=== PATIENT | female | born 1985 | race American Indian/Alaskan Native ===

== ENCOUNTER 2016-12-17 13:54 | Inpatient (IN) | payer OTHER, MEDICAID ==
[2016-12-17] MEDS ORDERED: COLACE PO PRN (14:19)
[2016-12-17] MEDS ORDERED: TYLENOL PO PRN (14:19)
--- NOTE | 2016-12-17 14:26 | History and Physical Report ---
[id number] complaint: 31 yo at 28wk + 1day EGA admitted for severe Pre E and IUGR and absent/ reversed end diastolic flow on doppler at [facility] by Dr Holden. She called me with this information and wanted patient admitted for observation, monitoring and steroids with anticipation that she might have to be delivered fairly soon. Patient has chronic hypertension, currently on no meds. Recent 24 hour urine was 504 mg which makes her severe PreE, per Dr Holden. Fetus has IUGR with growth at 8%. Patient sent to hospital at 11AM and showed up at 10PM. We will do steroids and continuous monitoring, baseline labs, bedrest. If monitoring is acceptable, she should have repeat dopplers in 2-3 days. Will also repeat 24 hr urine. Patient has had 2 prior vaginal deliveries. Will do GBS also. Patient has known pituitary microadenoma with last prolactin at 131, recent 1 hr glucose was 136 and we have not had time to follow this up. 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 Weight (lb): 134 BMI: 22.7 BP: 154/ 98 mm Hg Ur. Protein: negative Ur. Glucose: negative Chief Complaint/Current Status: c/o missed period, slight cramping, unable to eat.....arturoackson 2nd BP: 128/84....edinson Menstrual History Regularity: irregular LMP: 06/03/2016 LMP reliability: definite LMP character: normal test type: urine test Date: 07/23/2016 BC at conception: none Planned ? yes EDC Calculations LMP: 03/10/2017 EDC Confirmation: 03/10/2017 Gestational Age: 7 1/7 weeks Past History : 4 Term Births: 2 Premature Births: 0 Living Children: 2 Para: 2 Mult. Births: 0 Prev : 0 Aborta: 1 Elect. Ab: 1 # 1 Delivery date: 01/01/2007 Weeks Gestation: 38 labor: no Delivery type: Hours of labor: 8 Anesthesia type: epidural Delivery location: [facility] Sex: Male weight: 5-? Name: Shon Comments: Elevated BP # 2 Delivery date: 12/20/2009 Weeks Gestation: 38 labor: no Delivery type: Hours of labor: 7 Anesthesia type: epidural Delivery location: [facility] Infant Sex: Male weight: 5-? 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 of genital herpes: no Partner hx. of genital herpes: no Genetic History Congenital Heart Defect: Mom: no Dad: no Chao Disease: Mom: no Dad: no Thalassemia Mom: no Dad: no Neural Tube Defect Mom: no Dad: no Down's Syndrome Mom: no Dad: no Ulices-Sachs Mom: no Dad: no Sickle Cell Disease/Trait Mom: no Dad: no Hemophilia Mom: no Dad: no Muscular Dystrophy Mom: no Dad: no Cystic Fibrosis Mom: no Dad: no [place] Chorea Mom: no Dad: no Mental Retardation Mom: no Dad: no Fragile X Mom: no Dad: no Other Genetic/Chromosomal Disorder Mom: no Dad: no Child w/other defect Mom: no Dad: no Active Medications (reviewed today): FORMULA 27-1 MG ORAL TABS ( VIT-FE FUMARATE-FA) 1 po q day as directed PROMETHAZINE HCL 12.5 MG TABS (PROMETHAZINE HCL) 1 po q6 prn nausea PNV () Current Allergies (reviewed today): No known allergies Laboratory Results Routine Urinalysis Leukocytes: negative Nitrite: negative Urobilinogen: negative Protein: negative Blood: negative Ketone: large (80) Bilirubin: negative Glucose: negative Urine HCG: positive Review of Systems General Complains of fatigue. Denies fever, chills, sweats, anorexia, weakness, malaise, weight loss and sleep disorder. Complains of nausea and vomiting. Denies headache, swelling of legs, abdominal pain, vaginal discharge, vaginal bleeding and contractions. Denies vaginal discharge, incontinence, dysuria, hematuria, urinary frequency, amenorrhea, menorrhagia, abnormal vaginal bleeding, pelvic pain, genital sores, decreased libido, painful periods, painful sex, urinary urgency, hot flashes, vaginal dryness, vaginal itching and vaginal odor. CV Denies chest pains, palpitations, syncope, dyspnea on exertion, orthopnea, PND and peripheral edema. Resp Denies cough, dyspnea at rest, excessive sputum, hemoptysis, wheezing and pleurisy. Breast Complains of breast pain. Denies left breast lump, right breast lump, nipple discharge, bloody discharge from nipple, abnormal mammogram and breast enlargement. Psych Denies depression, anxiety, irritability and mood swings. PHYSICAL EXAM HEENT: normocephalic, no lesions or deformities Neck/Thyroid: supple, thyroid normal Skin no significant abnormal lesions or rashes .Tatoo(s) are present Chest: respiratory effort normal, clear to auscultation Breasts: skin/areolae normal, no masses, no nipple discharge, no erythema/warmth /tenderness, and axillae normal. 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 Vulva/Vagina: No lesions, normal BUS, normal rugae Cervix: No lesions; no cervical motion tenderness Uterus: enlarged uterus 8 - 10 weeks size Adnexae: no masses or tenderness Rectovaginal: exam defered Flowsheet View for Follow-up Visit Estimated weeks of gestation: 7 12/07 Weight: 134 Blood pressure: 154 / 98 Urine protein: negative Urine glucose: negative Urine nitrite: negative Current OB Labs Pap Smear: normal (12/02/2014) Impression & Recommendations: Problem # 1: Hyperprolactinemia (ICD-253.1) (CFH31-C70.1) Assessment: New Orders: Ofc Vst New [id number] ([id number]) Medications and Allergies Allergies Allergy/AdvReac Type Severity Reaction Status Date / Time No Known Allergies Allergy Verified 12/18/16 00:56 Results Result Diagrams: 12/17/16 23:48 12/17/16 23:48 All other labs normal. Assessment and Plan - Patient Problems (1) Severe pre-eclampsia in third trimester Status: Acute Plan to address problem: see HPI (2) Intrauterine growth restriction (IUGR) affecting care of mother, third trimester, single gestation Status: Acute Plan to address problem: see HPI
[2016-12-17] MEDS ORDERED: CELESTONE SOLUSPAN IM SCH ×2 (15:00→22:00)
[2016-12-18] MEDS: LACTATED RINGERS 1,000 ML IV SCH ×2 (00:02→22:52)
[2016-12-18 00:06] LABS: Basophils % (Auto) 0.3 % (0.0-1.8); Eosinophils % (Auto) 1.6 % (0.0-4.3); Hematocrit 35.2 % (30.3-42.9); Hemoglobin 12.4 gm/dl (10.1-14.3); Mean Corpuscular HGB Conc 35 % (30-34); Mean Corpuscular Hemoglobin 32 pg (28-32); Mean Corpuscular Volume 91 fl (79-97); Platelet Count 230 K/mm3 (140-440); Red Blood Count 3.88 M/mm3 (3.65-5.03); Red Cell Distribution Width 13.6 % (13.2-15.2); White Blood Count 8.8 K/mm3 (4.5-11.0)
[2016-12-18 00:26] LABS: Alanine Aminotransferase 19 units/L (7-56); Albumin 3.3 g/dL (3.9-5); Albumin/Globulin Ratio 1.1 %; Alkaline Phosphatase 67 units/L (35-129); Anion Gap 19 mmol/L; BUN/Creatinine Ratio 13.33; Bilirubin,Total 0.5 mg/dL (0.1-1.2); Blood Urea Nitrogen 4 mg/dL (7-17); Calcium 8.5 mg/dL (8.4-10.2); Carbon Dioxide 20 mmol/L (22-30); Chloride 102.4 mmol/L (98-107); Glucose 67 mg/dL (65-100); Potassium 3.4 mmol/L (3.6-5.0); Sodium 138 mmol/L (137-145); Total Protein 6.4 g/dL (6.3-8.2)
[2016-12-18] MEDS: AMBIEN PO PRN (03:00)
[2016-12-18 03:45] LABS: Bacteria,Urine 2+ /HPF (Negative); Bilirubin,Urine NEG (Negative); Blood,Urine MOD (Negative); Ketones,Urine TR mg/dL (Negative); Leukocyte Esterase,Urine MOD (Negative); Mucus,Urine FEW /HPF; Nitrite,Urine NEG (Negative); Protein,Urine <15 mg/dL mg/dL (Negative); Urobilinogen,Urine < 2.0 mg/dL (<2.0)
--- NOTE | 2016-12-18 03:45 | Ultrasound Report ---
FINAL REPORT PROCEDURE: US OB BPP WO NON-STRESS TECHNIQUE: Real-time limited sonographic examination was performed for evaluation of size, position, heartbeat, fluid volume for each fetus with image documentation (1 or more fetuses). CPT 20428 HISTORY: presentation, weight, growth COMPARISON: No prior studies are available for comparison. FINDINGS: breathing movements: 2. movements: 2. posterior and tone: 2. Amniotic fluid volume: 2. heart rate 141 beats per minute. IMPRESSION: Biophysical profile is 8/8.
--- NOTE | 2016-12-18 03:49 | Ultrasound Report ---
FINAL REPORT PROCEDURE: US OB VELOCIMETRY UMBILCAL ART TECHNIQUE: Real-time limited sonographic examination was performed for evaluation of size, position, heartbeat, fluid volume for each fetus with image documentation (1 or more fetuses). CPT 39715 HISTORY: absent/reversed end diastolic flow on doppler COMPARISON: No prior studies are available for comparison. FINDINGS: Umbilical artery Doppler was performed demonstrating absent and reversed end-diastolic blood flow. The SD ratio and RI could not be calculated. Pulsatility index is 28.2. heart rate is 143 beats per minute. IMPRESSION: Umbilical artery Doppler was performed demonstrating absent and reversed end-diastolic blood flow. Pulsatility index is 28.2. heart rate is 143 beats per minute.
--- NOTE | 2016-12-18 03:52 | Ultrasound Report ---
FINAL REPORT PROCEDURE: US OB FOLLOW UP TECHNIQUE: Real-time sonography performed for focused follow-up or re-evaluation of each size/growth parameters and amniotic fluid or re-evaluation of suspected or confirmed abnormality on prior imaging. CPT 33414 HISTORY: growth/efw, placenta scan COMPARISON: No prior studies are available for comparison. FINDINGS: MATERNAL Uterus: Within normal limits . Cervix length: 3.4 cm. Internal Os: Closed . IUP: Single living intrauterine . Position: Cephalic. Placental position: Anterior, Without previa . Amniotic fluid volume: Normal . Heart rate and rhythm: 125 BPM, Regular . anatomic survey: Not performed. There is right hydronephrosis. MEASUREMENTS BPD: 6.5 centimeters corresponding to 26 weeks and 3 days. HC: 24.6 centimeters correspond to 26 weeks and 5 days. AC: 22.5 centimeters correspond to 26 weeks and 6 days. FL: 4.8 centimeters correspond to 26 weeks. Mean Gestational Age (composite criteria): 26 weeks and 4 days. Ratio biometry: Normal . Estimated Weight: 952 grams. Interval growth: No prior study. Estimated Due Date (earliest scan): 03/22/2017. IMPRESSION: 1. Single living intrauterine gestation at approximately 26 weeks and 4 days 2. EDC by US 03/22/2017 3. There is right hydronephrosis.
--- NOTE | 2016-12-18 07:38 | Progress Note ---
Assessment and Plan Patient resting, no complaints of MAGAÑA, visual changes or epigastric pain. Discussed importance of monitoring d/t concern over IUGR and reversed doppler flow. [facility]'s Dr. Alvares here to see patient. Continue current management at this time. Dr. Dempsey to be updated. - Patient Problems (1) Intrauterine growth restriction (IUGR) affecting care of mother, third trimester, single gestation Current Visit: No Status: Acute Plan to address problem: Continuous monitoring with u/s as recommended by [facility] Doppler flow studies reviewed by Dr. Alvares reviewed u/s - noted to be reversed. BMZ second dose @ 0100 12/19/16 (2) 28 weeks gestation of Current Visit: Yes Status: Acute (3) HTN (hypertension) Current Visit: Yes Status: Acute Plan to address problem: r/o pre-e verses chronic htn 24h urine in progress, UA upon arrival with trace protein. Subjective - Subjective Date of service: 12/18/16 Principal diagnosis: IUP @ 28+2, CHTN, IUGR, reveresed doppler studies Patient reports: movement normal, no new complaints, no loss of fluid, no vaginal bleeding, no contractions Objective - Vital Signs Vital Signs: Vital Signs - 12hr 12/17/16 12/17/16 12/17/16 23:27 23:36 23:41 Temperature Pulse Rate 76 76 83 Pulse Rate [ Left From Monitor] Respiratory Rate Blood Pressure 156/97 Blood Pressure [Right Arm] O2 Sat by Pulse 99 100 Oximetry 12/17/16 12/17/16 12/17/16 23:46 23:51 23:56 Temperature Pulse Rate 80 82 74 Pulse Rate [ Left From Monitor] Respiratory Rate Blood Pressure Blood Pressure [Right Arm] O2 Sat by Pulse 99 99 99 Oximetry 12/18/16 12/18/16 12/18/16 00:01 00:06 00:11 Temperature Pulse Rate 76 71 71 Pulse Rate [ Left From Monitor] Respiratory Rate Blood Pressure Blood Pressure [Right Arm] O2 Sat by Pulse 99 99 99 Oximetry 12/18/16 12/18/16 12/18/16 00:16 00:21 00:26 Temperature Pulse Rate 71 72 69 Pulse Rate [ Left From Monitor] Respiratory Rate Blood Pressure Blood Pressure [Right Arm] O2 Sat by Pulse 99 100 99 Oximetry 12/18/16 12/18/16 12/18/16 00:31 00:36 00:41 Temperature Pulse Rate 83 71 71 Pulse Rate [ Left From Monitor] Respiratory Rate Blood Pressure Blood Pressure [Right Arm] O2 Sat by Pulse 99 99 98 Oximetry 12/18/16 12/18/16 12/18/16 01:23 01:53 02:47 Temperature Pulse Rate 89 87 74 Pulse Rate [ Left From Monitor] Respiratory Rate Blood Pressure 141/93 180/117 182/117 Blood Pressure [Right Arm] O2 Sat by Pulse Oximetry 12/18/16 12/18/16 12/18/16 03:17 05:23 05:47 Temperature Pulse Rate 75 86 130 H Pulse Rate [ Left From Monitor] Respiratory Rate Blood Pressure 147/80 140/85 131/86 Blood Pressure [Right Arm] O2 Sat by Pulse Oximetry 12/18/16 12/18/16 12/18/16 06:17 06:48 07:17 Temperature Pulse Rate 94 H 146 H 88 Pulse Rate [ Left From Monitor] Respiratory Rate Blood Pressure 132/79 125/98 144/92 Blood Pressure [Right Arm] O2 Sat by Pulse Oximetry 12/18/16 12/18/16 12/18/16 07:21 07:26 07:27 Temperature 97.4 F L Pulse Rate 108 H 95 H Pulse Rate [ 103 H Left From Monitor] Respiratory 16 Rate Blood Pressure Blood Pressure 147/98 [Right Arm] O2 Sat by Pulse 98 98 98 Oximetry 12/18/16 12/18/16 12/18/16 07:28 07:29 07:31 Temperature Pulse Rate 98 H 97 H 95 H Pulse Rate [ Left From Monitor] Respiratory Rate Blood Pressure 149/103 147/98 Blood Pressure [Right Arm] O2 Sat by Pulse 98 Oximetry - Exam Breasts: normal Cardiovascular: Regular rate Lungs: Clear to auscultation, Normal air movement Abdomen: Present: normal appearance, soft Uterus: Present: normal FHR: auscultation normal, category 1 Uterine Contraction Monitor Mode: External Uterine Contraction Frequency (min): irregular Uterine Contraction Pattern: Irregular Uterine Tone Measurement Phase: Resting Extremities: normal Deep Tendon Reflex Grade: Normal +2 - Labs Labs: Abnormal Labs 12/17/16 12/17/16 23:48 23:48 MCHC 35 H Person % (Auto) 7.6 H Potassium 3.4 L Carbon Dioxide 20 L BUN 4 L Creatinine 0.3 L Albumin 3.3 L Laboratory Results - last 24 hr 12/17/16 12/17/16 12/17/16 23:48 23:48 23:48 WBC 8.8 RBC 3.88 Hgb 12.4 Hct 35.2 MCV 91 MCH 32 MCHC 35 H RDW 13.6 Plt Count 230 Lymph % (Auto) 25.6 Person % (Auto) 7.6 H Eos % (Auto) 1.6 Baso % (Auto) 0.3 Lymph # 2.3 Person # 0.7 Eos # 0.1 Baso # 0.0 Seg Neutrophils % 64.9 Seg Neutrophils # 5.7 Sodium 138 Potassium 3.4 L Chloride 102.4 Carbon Dioxide 20 L Anion Gap 19 BUN 4 L Creatinine 0.3 L Estimated GFR > 60 BUN/Creatinine Ratio 13.33 Glucose 67 Uric Acid Calcium 8.5 Total Bilirubin 0.5 AST 23 ALT 19 Alkaline Phosphatase 67 Total Protein 6.4 Albumin 3.3 L Albumin/Globulin Ratio 1.1 Urine Color Urine Turbidity Urine pH Ur Specific [place] Urine Protein Urine Glucose (UA) Urine Ketones Urine Blood Urine Nitrite Urine Bilirubin Urine Urobilinogen Ur Leukocyte Esterase Urine WBC (Auto) Urine RBC (Auto) U Epithel Cells (Auto) Urine Bacteria (Auto) Urine Mucus Blood Type O POSITIVE Antibody Screen Negative 12/17/16 12/18/16 23:48 03:00 WBC RBC Hgb Hct MCV MCH MCHC RDW Plt Count Lymph % (Auto) Person % (Auto) Eos % (Auto) Baso % (Auto) Lymph # Person # Eos # Baso # Seg Neutrophils % Seg Neutrophils # Sodium Potassium Chloride Carbon Dioxide Anion Gap BUN Creatinine Estimated GFR BUN/Creatinine Ratio Glucose Uric Acid 5.2 Calcium Total Bilirubin AST ALT Alkaline Phosphatase Total Protein Albumin Albumin/Globulin Ratio Urine Color Yellow Urine Turbidity Clear Urine pH 6.0 Ur Specific [place] 1.012 Urine Protein <15 mg/dl Urine Glucose (UA) Neg Urine Ketones Tr Urine Blood Mod Urine Nitrite Neg Urine Bilirubin Neg Urine Urobilinogen < 2.0 Ur Leukocyte Esterase Mod Urine WBC (Auto) 2.0 Urine RBC (Auto) 1.0 U Epithel Cells (Auto) 9.0 Urine Bacteria (Auto) 2+ Urine Mucus Few Blood Type Antibody Screen
[2016-12-18] MEDS: PRENATAL VITAMIN PO SCH (10:20)
[2016-12-18] MEDS ORDERED: APRESOLINE ONE (19:57)
[2016-12-18] MEDS: NORMODYNE PO SCH (20:00)
[2016-12-18] MEDS ORDERED: APRESOLINE IV PRN (20:01)
[2016-12-19] MEDS: AMBIEN PO PRN (01:09)
--- NOTE | 2016-12-19 06:31 | Progress Note ---
Assessment and Plan - Patient Problems (1) Intrauterine growth restriction (IUGR) affecting care of mother, third trimester, single gestation Current Visit: No Status: Acute Plan to address problem: on complete review of the strip it is noted that there are sporadic episodes of ctx and there are occasional prolonged variables At present pt is lying on her left side Denies feeling any ctx @ this time. FHR 130-140s, avg variability, no decels at this time. 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 Will continue close monitoring. Consult with on her arrival. 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 Pt has Labetalol 200mg BID ordered po, she received a dose @ 2200. (3) 28 weeks gestation of Current Visit: Yes Status: Acute Plan to address problem: BMZ was completed 12-19-16 @ 0100 Continuous monitoring Repeat BPP, dopplers, US to be done as per [facility] recommendation as noted strip Category 2 with occ variables Average variability Occasional ctx recorded overnight Pt denies any pain this AM Will consult with . Subjective - Subjective Date of service: 12/19/16 (occassional variable decels noted on strip review) Principal diagnosis: IUP @ 28+3, PreE with CHTN, IUGR, reveresed doppler studies Patient reports: movement normal, contractions (pt has had some ctx overnight), no new complaints, no loss of fluid, no vaginal bleeding Objective - Vital Signs Vital Signs: Vital Signs - 12hr 12/18/16 12/18/16 12/18/16 18:31 18:36 18:41 Pulse Rate 121 H 96 H 104 H Blood Pressure O2 Sat by Pulse 98 99 98 Oximetry 12/18/16 12/18/16 12/18/16 18:46 18:51 18:55 Pulse Rate 98 H 98 H 101 H Blood Pressure 167/108 O2 Sat by Pulse 98 99 Oximetry 12/18/16 12/18/16 12/18/16 18:56 19:01 19:06 Pulse Rate 105 H 100 H 97 H Blood Pressure O2 Sat by Pulse 99 98 98 Oximetry 12/18/16 12/18/16 12/18/16 19:11 19:16 19:21 Pulse Rate 95 H 106 H 97 H Blood Pressure O2 Sat by Pulse 99 98 99 Oximetry 12/18/16 12/18/16 12/18/16 19:25 19:26 19:31 Pulse Rate 93 H 96 H 107 H Blood Pressure 166/95 O2 Sat by Pulse 100 99 Oximetry 12/18/16 12/18/16 12/18/16 19:36 19:41 19:46 Pulse Rate 99 H 98 H 103 H Blood Pressure O2 Sat by Pulse 98 98 99 Oximetry 12/18/16 12/18/16 12/18/16 19:51 19:55 19:56 Pulse Rate 102 H 105 H 111 H Blood Pressure 173/116 O2 Sat by Pulse 100 99 Oximetry 12/18/16 12/18/16 12/18/16 20:01 20:03 20:06 Pulse Rate 95 H 96 H 102 H Blood Pressure 165/105 O2 Sat by Pulse 99 99 Oximetry 12/18/16 12/18/16 12/18/16 20:11 20:16 20:21 Pulse Rate 91 H 89 96 H Blood Pressure O2 Sat by Pulse 99 100 98 Oximetry 12/18/16 12/18/16 12/18/16 20:25 20:26 20:28 Pulse Rate 88 90 86 Blood Pressure 161/101 165/105 O2 Sat by Pulse 98 Oximetry 12/18/16 12/18/16 12/18/16 20:31 20:36 20:41 Pulse Rate 91 H 94 H 117 H Blood Pressure O2 Sat by Pulse 98 99 99 Oximetry 12/18/16 12/18/16 12/18/16 20:46 20:51 20:55 Pulse Rate 113 H 122 H 112 H Blood Pressure 137/88 O2 Sat by Pulse 98 98 Oximetry 12/18/16 12/18/16 12/18/16 20:56 21:01 21:27 Pulse Rate 119 H 107 H 118 H Blood Pressure 141/82 O2 Sat by Pulse 99 98 Oximetry 12/18/16 12/18/16 12/18/16 21:56 22:25 22:55 Pulse Rate 110 H 111 H 116 H Blood Pressure 143/81 155/94 140/86 O2 Sat by Pulse Oximetry 12/18/16 12/18/1612/19/17 23:24 23:54 00:25 Pulse Rate 116 H 121 H 114 H Blood Pressure 142/91 132/94 129/78 O2 Sat by Pulse Oximetry 12/19/16 12/19/16 12/19/16 00:57 01:57 02:57 Pulse Rate 96 H 91 H 103 H Blood Pressure 137/78 134/82 134/81 O2 Sat by Pulse Oximetry 12/19/16 12/19/16 12/19/16 03:57 04:57 05:57 Pulse Rate 111 H 102 H 120 H Blood Pressure 138/85 141/83 120/69 O2 Sat by Pulse Oximetry - Exam Breasts: deferred Cardiovascular: Regular rate Lungs: Normal air movement Abdomen: Present: normal appearance, soft Uterus: Present: normal FHR: category 2 (variable decels ) Uterine Contraction Monitor Mode: External Uterine Contraction Pattern: Irregular Uterine Tone Measurement Phase: Resting Uterine Contraction Intensity: Mild Extremities: edema Deep Tendon Reflex Grade: Normal +2 - Labs Labs: Abnormal Labs 12/17/16 12/17/16 23:48 23:48 MCHC 35 H [place] % (Auto) 7.6 H Potassium 3.4 L Carbon Dioxide 20 L BUN 4 L Creatinine 0.3 L Albumin 3.3 L
--- NOTE | 2016-12-19 08:24 | Event Note ---
Date: 12/19/16 (Labs and US being done ) per NICU is aware of pt and status for delivery She spoke with charge nurse Marito Taylor RN Pt was also seen by [facility] Dr. Khanna Consult to follow
[2016-12-19 08:27] LABS: Hematocrit 39.2 % (30.3-42.9); Hemoglobin 13.5 gm/dl (10.1-14.3); Mean Corpuscular HGB Conc 34 % (30-34); Mean Corpuscular Hemoglobin 32 pg (28-32); Mean Corpuscular Volume 92 fl (79-97); Platelet Count 288 K/mm3 (140-440); Red Blood Count 4.27 M/mm3 (3.65-5.03); Red Cell Distribution Width 13.9 % (13.2-15.2); White Blood Count 14.4 K/mm3 (4.5-11.0)
[2016-12-19] MEDS: LACTATED RINGERS 1,000 ML IV SCH (08:44)
--- NOTE | 2016-12-19 08:44 | Progress Note ---
Assessment and Plan A: 1. IUP at 28 3/7 weeks gestation 2. Chronic HTN with superimposed preeclampsia with severe features 3. IUGR with RDF 4. left hydronephrosis 5. s/p BMZ Recommendations The plan of care was reviewed with the patient . The presence of uteroplacental insufficiency , significance of RDF and potential complications including but not limited to hypoxia and were discussed. Delivery is recommended at this time , however she would like to continue expectant management . We discussed the need for continuous inpatient monitoring , and possible need for emergent CS in the event of distress. Potential maternal complications associated with preeclampsia with severe features was discussed . She was advised to notify the RN/MD if she develops MAGAÑA, visual changes, CP, RUQ pain, SOB , abdominal pain or bleeding. She stated understanding and all questions were answered 1. Continue Labetalol at current dose , titrate to maintain BP 120-160/80- 105mmhg 2. IV Hydralazine prn SBP>160mmhg, DBP>105mmhg 3. Daily BPP /dopplers 4. CBC, CMP 1-2 times weekly to evaluate for end organ damage, increased frequency if indicated 5. NICU consult Discussed with Dr Ordaz Subjective - Subjective Date of service: 12/19/16 Principal diagnosis: IUP @ 28+3, superimposed preeclampsia -severe features, IUGR RDF Interval history: She received Hydralazine 20mg yesterday evening secondary to severe range BP and was started on Labetalol 200mg q12hr She denied MAGAÑA chest pain SOB RUQ pain COntractions bleeding or LOF Patient reports: movement normal, contractions (pt has had some ctx overnight), no new complaints, no loss of fluid, no vaginal bleeding Objective - Vital Signs Vital Signs: Vital Signs - 12hr 12/18/16 12/18/16 12/18/16 20:41 20:46 20:51 Temperature Pulse Rate 117 H 113 H 122 H Blood Pressure O2 Sat by Pulse 99 98 98 Oximetry 12/18/16 12/18/16 12/18/16 20:55 20:56 21:01 Temperature Pulse Rate 112 H 119 H 107 H Blood Pressure 137/88 O2 Sat by Pulse 99 98 Oximetry 12/18/16 12/18/16 12/18/16 21:27 21:56 22:25 Temperature Pulse Rate 118 H 110 H 111 H Blood Pressure 141/82 143/81 155/94 O2 Sat by Pulse Oximetry 12/18/16 12/18/16 12/18/16 22:55 23:24 23:54 Temperature Pulse Rate 116 H 116 H 121 H Blood Pressure 140/86 142/91 132/94 O2 Sat by Pulse Oximetry 12/19/16 12/19/16 12/19/16 00:25 00:57 01:57 Temperature Pulse Rate 114 H 96 H 91 H Blood Pressure 129/78 137/78 134/82 O2 Sat by Pulse Oximetry 12/19/16 12/19/16 12/19/16 02:57 03:57 04:57 Temperature Pulse Rate 103 H 111 H 102 H Blood Pressure 134/81 138/85 141/83 O2 Sat by Pulse Oximetry 12/19/16 12/19/16 12/19/16 05:57 06:57 07:57 Temperature Pulse Rate 120 H 106 H 122 H Blood Pressure 120/69 142/84 140/87 O2 Sat by Pulse Oximetry 12/19/16 12/19/16 12/19/16 08:15 08:17 08:20 Temperature 98 F Pulse Rate 108 H 105 H Blood Pressure O2 Sat by Pulse 98 98 Oximetry 12/19/16 12/19/16 08:25 08:30 Temperature Pulse Rate 106 H 113 H Blood Pressure O2 Sat by Pulse 99 98 Oximetry - Exam Narrative Exam: laying in bed NAD Abdomen: Present: normal appearance, soft (gravid nontender no palpable contractions) FHR: category 2 (minimal to moderate variability , variable decelerations ) Uterine Contraction Monitor Mode: External (no contractions) Extremities: normal (no c/c/e) - Labs Labs: Abnormal Labs 12/17/16 12/17/16 12/19/16 23:48 23:48 08:08 WBC 14.4 H MCHC 35 H [place] % (Auto) 7.6 H Potassium 3.4 L Carbon Dioxide 20 L BUN 4 L Creatinine 0.3 L Albumin 3.3 L Laboratory Results - last 24 hr 12/19/16 08:08 WBC 14.4 H RBC 4.27 Hgb 13.5 Hct 39.2 MCV 92 MCH 32 MCHC 34 RDW 13.9 Plt Count 288 - Results US- obstetric: report reviewed (12/18/2016 report reviewed)
[2016-12-19 08:45] LABS: Lactate Dehydrogenase 161 units/L (91-180); Uric Acid 5.3 mg/dL (3.5-7.6)
--- NOTE | 2016-12-19 10:10 | Progress Note ---
Assessment and Plan see MFM note Now blood pressures are requiring medication for control which indicates worsening of preeclampsia. Recommendations by MFM again reviewed with patient. Risk associated with trial of labor and potential for worsening condition explained. Risk associated with delivery , including but not limited to, bleeding, infection, and injury to bowel or bladder or ureters was discussed. The importance of a controlled, non-emergent delivery was emphasized. Questions were encouraged and answered. Consents were reviewed and signed. Patient now desires to proceed with delivery. - Patient Problems (1) 28 weeks gestation of Current Visit: Yes Status: Acute (2) HTN (hypertension) Current Visit: Yes Status: Acute (3) Intrauterine growth restriction (IUGR) affecting care of mother, third trimester, single gestation Current Visit: No Status: Acute (4) Severe pre-eclampsia in third trimester Current Visit: No Status: Acute Subjective - Subjective Date of service: 12/19/16 Principal diagnosis: IUP @ 28+3, superimposed preeclampsia -severe features, IUGR RDF Interval history: MAGAÑA earlier today, denies visual changes and RUQ pain Patient reports: movement normal, no loss of fluid, no vaginal bleeding Objective - Vital Signs Vital Signs: Vital Signs - 12hr 12/18/16 12/18/16 12/18/16 22:25 22:55 23:24 Temperature Pulse Rate 111 H 116 H 116 H Blood Pressure 155/94 140/86 142/91 O2 Sat by Pulse Oximetry 12/18/16 12/19/16 12/19/16 23:54 00:25 00:57 Temperature Pulse Rate 121 H 114 H 96 H Blood Pressure 132/94 129/78 137/78 O2 Sat by Pulse Oximetry 12/19/16 12/19/16 12/19/16 01:57 02:57 03:57 Temperature Pulse Rate 91 H 103 H 111 H Blood Pressure 134/82 134/81 138/85 O2 Sat by Pulse Oximetry 12/19/16 12/19/16 12/19/16 04:57 05:57 06:57 Temperature Pulse Rate 102 H 120 H 106 H Blood Pressure 141/83 120/69 142/84 O2 Sat by Pulse Oximetry 12/19/16 12/19/16 12/19/16 07:57 08:15 08:17 Temperature 98 F Pulse Rate 122 H 108 H Blood Pressure 140/87 O2 Sat by Pulse 98 Oximetry 12/19/16 12/19/16 12/19/16 08:20 08:25 08:30 Temperature Pulse Rate 105 H 106 H 113 H Blood Pressure O2 Sat by Pulse 98 99 98 Oximetry 12/19/16 12/19/16 12/19/16 08:35 08:40 08:45 Temperature Pulse Rate 104 H 108 H 104 H Blood Pressure O2 Sat by Pulse 98 98 99 Oximetry 12/19/16 12/19/16 12/19/16 08:50 08:55 08:57 Temperature Pulse Rate 101 H 117 H 106 H Blood Pressure 135/82 O2 Sat by Pulse 99 96 Oximetry 12/19/16 12/19/16 12/19/16 09:00 09:05 09:10 Temperature Pulse Rate 103 H 102 H 107 H Blood Pressure O2 Sat by Pulse 98 98 98 Oximetry 12/19/16 12/19/16 12/19/16 09:15 09:20 09:25 Temperature Pulse Rate 98 H 104 H 111 H Blood Pressure O2 Sat by Pulse 98 99 98 Oximetry 12/19/16 12/19/16 12/19/16 09:30 09:35 09:57 Temperature Pulse Rate 104 H 104 H 112 H Blood Pressure 142/92 O2 Sat by Pulse 99 97 Oximetry - Exam Breasts: deferred Cardiovascular: Regular rate Lungs: Clear to auscultation, Normal air movement Abdomen: Present: normal appearance. Absent: tenderness Uterus: Present: normal FHR: category 1 Uterine Contraction Monitor Mode: External Extremities: normal Deep Tendon Reflex Grade: Normal +2 - Labs Labs: Abnormal Labs 12/17/16 12/17/16 12/19/16 23:48 23:48 08:08 WBC 14.4 H MCHC 35 H [place] % (Auto) 7.6 H Potassium 3.4 L Carbon Dioxide 20 L BUN 4 L Creatinine 0.3 L Albumin 3.3 L 12/19/16 08:08 WBC MCHC [place] % (Auto) Potassium Carbon Dioxide BUN Creatinine 0.4 L Albumin Laboratory Results - last 24 hr 12/19/16 12/19/16 08:08 08:08 WBC 14.4 H RBC 4.27 Hgb 13.5 Hct 39.2 MCV 92 MCH 32 MCHC 34 RDW 13.9 Plt Count 288 Creatinine 0.4 L Estimated GFR > 60 Uric Acid 5.3 AST 38 Lactate Dehydrogenase 161
[2016-12-19] MEDS ORDERED: LACTATED RINGERS 1,000 ML IV NR (11:00)
[2016-12-19] MEDS ORDERED: ANCEF/STERILE WATER 2 GM/20 ML 20 ML IV NR (11:00)
[2016-12-19] MEDS ORDERED: PEPCID IV NR (11:00)
[2016-12-19] MEDS ORDERED: REGLAN IV NR (11:00)
[2016-12-19] MEDS ORDERED: PITOCin/NS 20 UNIT/1000ML DRIP 1,000 ML IV NR (11:00)
[2016-12-19] MEDS ORDERED: BICITRA PO NR (11:00)
[2016-12-19] MEDS: NORMODYNE PO SCH (11:13)
[2016-12-19] MEDS: PRENATAL VITAMIN PO SCH (11:13)
--- NOTE | 2016-12-19 12:31 | Anesthesia Consultation ---
Anesthesia Consult and Med Hx Date of service: 12/19/16 - Airway Anesthetic Teeth Evaluation: Good ROM Head & Neck: Adequate Mental/Hyoid Distance: Adequate Mallampati Class: Class II Intubation Access Assessment: Probably Good - Pre-Operative Health Status ASA Pre-Surgery Classification: ASA2 Proposed Anesthetic Plan: Spinal - Pulmonary Hx Asthma: No - Cardiovascular System Hx Hypertension: Yes (CHTN n meds) - Central Nervous System Hx Seizures: No - Endocrine Hx Renal Disease: No Hx Hypothyroidism: No Hx Hyperthyroidism: No - Hematic Hx Anemia: No Hx Sickle Cell Disease: No - Other Systems Hx Alcohol Use: No
[2016-12-19] MEDS ORDERED: NARCAN 0.4 MG/1 ML IV PRN ×2 (12:33→16:36)
[2016-12-19] MEDS ORDERED: ZOFRAN IV PRN ×2 (12:33→16:36)
--- NOTE | 2016-12-19 12:33 | Anesthesia Day of Surgery ---
Anesthesia Day of Surgery - Day of Surgery Patient Examined: Yes Patient H&P Reviewed: Yes Patient is NPO: Yes
[2016-12-19] MEDS ORDERED: TORADOL IV PRN (12:34)
[2016-12-19] MEDS ORDERED: SODIUM CHLORIDE FLUSH SYRINGE 10 ML IV NR ×2 (13:00→16:36)
--- NOTE | 2016-12-19 13:15 | Ultrasound Report ---
BIOPHYSICAL PROFILE: History: well-being. Technique: Transabdominal ultrasound with Doppler interrogation. 2 - breathing movements 2 - movements 2 - posture and tone 2 - Qualitative amniotic fluid volume 8 - TOTAL SCORE OF POSSIBLE 8 Heart Rate (bpm) 128
[2016-12-19] MEDS ORDERED: MORPHINE ONE (14:32)
[2016-12-19] MEDS ORDERED: ANCEF/STERILE WATER 2 GM/20 ML IV ONE (14:55)
[2016-12-19] MEDS ORDERED: NACL 0.9% IR ONE (14:58)
[2016-12-19] MEDS ORDERED: WATER FOR IRRIG STERILE IR ONE (14:58)
[2016-12-19] MEDS ORDERED: KETALAR ONE (15:02)
[2016-12-19] MEDS: DILAUDID IV PRN ×3 (15:52→23:34)
--- NOTE | 2016-12-19 16:00 | Operative Report ---
Operative Report Operative Report: Date of procedure: 12/19/2016 Pre-operative diagnosis: 1. Intrauterine at 28 weeks 2. Chronic hypertension with superimposed severe preeclampsia 3. Intrauterine growth restriction with abnormal Dopplers 4. Unfavorable cervix for induction patient desired to proceed with delivery Post-operative diagnosis: 1. Intrauterine at 28 weeks 2. Chronic hypertension with superimposed severe preeclampsia 3. Intrauterine growth restriction with abnormal Dopplers 4. Unfavorable cervix for induction patient desired to proceed with delivery Procedure name(s): Low transverse section Surgeon: Susu Ordaz MD Entry Level Financial Analyst: Katy Ott CST Anesthesia: Spinal EBL: 500 mL Complications: None Findings: Liveborn male . Born with spontaneous cry and excellent tone. Apgars and weight pending. Grossly normal uterus, tubes, ovaries. Procedure: After risks, benefits, and complications and alternatives and consequences, were discussed with patient, and she voiced her understanding and desired to proceed. Patient was taken to the OR, where spinal anesthesia was placed. She was then placed in the left lateral tilt position, and prepped and draped in the usual sterile fashion. After timeout was performed, and an appropriate level of anesthesia was noted, a Pfannenstiel incision was made and extended to the fascia. The fascia was incised and extended in a lateral direction. The overlying fascia was sharply dissected away from the underlying rectus muscles in the superior-inferior direction. The midline was entered bluntly. The vesicouterine fold was incised and with blunt and sharp dissection the bladder flap was created. A transverse incision was made in the lower uterine segment and extended in the superior lateral direction with finger fractionation. Slight meconium stained fluid was noted. The was delivered from the cephalic position.The cord was doubly clamped and cut. The 's mouth and nose were bulb suctioned. And the infant was given to the resuscitation team present. The placenta was manually extracted. The uterus was exteriorized and cleaned any products of conception and placental tissue. The incision was reapproximated using 0 Vicryl in a running interlocking stitch. Grossly normal tubes and ovaries were noted. Once hemostasis was noted, the uterus was allowed back into the pelvic cavity. The pelvis was irrigated with warm normal saline. Once hemostasis was noted, Tisseel was applied to the anterior surface of the incision. Once hemostasis was noted, Interceed was applied to the anterior aspect of the uterus for adhesion prevention. Once hemostasis was noted, attention was turned to the rectus muscles. Once hemostasis was noted, the fascia was reapproximated using 0 Vicryl in a simple running stitch. Once hemostasis was noted, the incision was irrigated with normal saline. The incision was then reapproximated using 4- 0 Vicryl on a Everette needle in a subcuticular manner. Patient tolerated the procedure well she was taken to recovery room in stable condition. Counts were correct 3
[2016-12-19] MEDS ORDERED: PITOCin/NS 20 UNIT/1000ML DRIP 1,000 ML IV SCH (16:36)
[2016-12-19] MEDS ORDERED: MAGNESIUM SULFATE 4GM/100ML 100 ML IV ONE (16:36)
[2016-12-19] MEDS ORDERED: NORMODYNE IV PRN (16:36)
[2016-12-19] MEDS ORDERED: APRESOLINE IV PRN (16:36)
[2016-12-19] MEDS ORDERED: LACTATED RINGERS 1,000 ML IV SCH (16:36)
[2016-12-19] MEDS ORDERED: MYLICON PO PRN (16:36)
[2016-12-19] MEDS ORDERED: D5LR 1,000 ML IV SCH (16:36)
[2016-12-19] MEDS ORDERED: TYLENOL PO PRN (16:36)
[2016-12-19] MEDS ORDERED: MILK OF MAGNESIA PO PRN (16:36)
[2016-12-19] MEDS ORDERED: LANSINOH TP PRN (16:36)
[2016-12-19] MEDS ORDERED: PHENERGAN PR PRN (16:36)
[2016-12-19] MEDS ORDERED: TUCKS PAD TP PRN (16:36)
[2016-12-19] MEDS ORDERED: TORADOL ONE (17:13)
[2016-12-19] MEDS: MAGNESIUM SULFATE 40GM/1000ML 1,000 ML IV NR (17:28)
[2016-12-19] MEDS ORDERED: DILAUDID IV ONE (19:23)
--- NOTE | 2016-12-19 20:04 | Admit Criteria Form ---
Admission Criteria Documentation: HYPERTENSIVE DISORDERS OF Clinical Indications for Admission to Inpatient Care (Place 'X' for any and all applicable criteria): Admission is indicated for ANY ONE of the following (1)(2)(3)(4)(5): [ ]I. Eclampsia[A][B] [X ]II. Preeclampsia with severe features (ie, severe preeclampsia) indicated by ANY ONE of the following[B][C]: [ X]a) SBP greater than or equal to 160 mm Hg or DBP greater than or equal to 110 mm Hg on 2 occasions at least 4 hours apart while the patient is at bed rest (unless antihypertensive therapy is initiated before this time) [ ]b) Platelet count less than 100,000/mm3 (100 x109/L) [ ]c) Impaired liver function as indicated by ANY ONE of the following: [ ]i. Elevation of liver enzymes (eg, SGOT, SGPT) to twice normal concentration [ ]ii. Severe persistent right upper quadrant or epigastric pain unresponsive to medication and not accounted for by alternative diagnosis [ ]d) Progressive renal insufficiency indicated by ANY ONE of the following: [ ]i. Serum creatinine concentration greater than 1.1 mg/dL (97 micromoles/L) [ ]ii. Doubling (from baseline) of serum creatinine concentration in the absence of other renal disease [ ]e) Pulmonary edema [ ]f) Cerebral or visual symptoms (eg, headache, Altered mental status , changes in vision) [ ]III. Delivery planned due to nonsevere preeclampsia as indicated by ALL of the following: [ ]a) Nonsevere preeclampsia present as indicated by ALL of the following: [ ]i. Woman at 20 or more weeks' gestation [ ]ii. New-onset SBP greater than or equal to 140 mm Hg but less than 160 mm Hg or DBP greater than or equal to 90 mm Hg but less than 110 mm Hg on 2 occasions at least 4 hours apart [ ]iii. Proteinuria present as indicated by ANY ONE of the following: [ ]A. Urinary protein excretion greater than or equal to 300 mg per 24-hour collection (or this amount extrapolated from a shorter timed collection) [ ]B. Protein/creatinine ratio greater than or equal to 0.3 (measured in mg/dL) [ ]b) Delivery indicated due to ANY ONE of the following: [ ]i. Gestational age of 37 0/7 weeks or more [ ]ii. Gestational age of 34 0/7 weeks to 36 6/7 weeks and ANY ONE of the following: [ ]A. Progressive labor or rupture of membranes [ ]B. Abnormal biophysical profile [ ]C. Suspected abruptio placentae [ ]D. Ultrasound estimate of weight less than 5th percentile [ ]E. Other indication for delivery [ ]IV. Delivery planned due to gestational hypertension[D] because of ANY ONE of the following: [ ]a) Delivery indicated because gestational age of 37 0/7 weeks or more has been reached [ ]b) Gestational age of 34 0/7 weeks to 36 6/7 weeks for which delivery is indicated because of ANY ONE of the following: [ ]i. Progressive labor or rupture of membranes [ ]ii. Abnormal biophysical profile [ ]iii. Suspected abruptio placentae [ ]iv. Ultrasound estimate of weight less than 5th percentile [ ]v. Other indication for delivery [ ]V. Hypertension of any category[E] during with acute end organ damage as indicated by ANY ONE of the following: [ ]a) Hypertensive encephalopathy (eg, Altered mental status that is severe or persistent )(11) [ ]b) Cerebral infarction [ ]c) Intracranial hemorrhage [ ]d) Myocardial ischemia or infarction [ ]e) Pulmonary edema [ ]f) Aortic dissection [ ]g) Seizure [ ]h) Papilledema [ ]i) Microangiopathic hemolytic anemia [ ]j) Visual loss [ ]k) Acute renal failure [ ]) Hypertension during with evidence of compromise as indicated by ANY ONE of the following: [ ]a) Abnormal heart tones [ ]b) Abnormal stress test [ ]c) Abnormal biophysical profile [ ]VII) patient requires inpatient control of blood pressure indicated by (see Hypertensive Disorders of : Observation Care [facility] guideline as appropriate) ALL of the following: [ ]a) SBP is greater than or equal to 160 mm Hg or DBP is greater than or equal to 105 mm Hg [ ]b) Blood pressure cannot be reduced below these levels with outpatient or observation care treatment (eg, oral medications not effective) Extended stay beyond goal length of stay may be needed for : [ ]a) Eclampsia [ ]b) Ongoing compromise [ ]c) Complications of hypertensive disorders of [ ]d) Active comorbidities (eg, heart failure, poorly controlled diabetes, renal insufficiency) [ ]e) Persistent hypertension [ ]f) Delivery planned The original [facility] [employer] content created by Isaiahtha Christianson has been revised. The portions of the content which have been revised are identified through the use of italic text or in bold, and Rey Christianson has neither reviewed nor approved the modified material. All other unmodified content is copyright [facility]. Please see references footnoted in the original [facility] [employer] edition 2016. Admission Criteria Met: Yes
[2016-12-19] MEDS: ANCEF/NS 1 GM/50 ML 50 ML IV SCH (23:30)
[2016-12-20] MEDS: BENADRYL IV PRN ×2 (03:21→05:51)
[2016-12-20] MEDS ORDERED: BOOSTRIX IM ONE (06:00)
[2016-12-20 06:33] LABS: Hematocrit 24.2 % (30.3-42.9); Hemoglobin 8.3 gm/dl (10.1-14.3)
[2016-12-20] MEDS: ANCEF/NS 1 GM/50 ML 50 ML IV SCH (06:47)
[2016-12-20 07:07] LABS: Bilirubin,Urine NEG (Negative); Blood,Urine LG (Negative); Granular Casts,Urine 1 /LPF; Ketones,Urine NEG (Negative); Leukocyte Esterase,Urine SM (Negative); Mucus,Urine FEW /HPF; Nitrite,Urine NEG (Negative); Protein,Urine <15 mg/dL mg/dL (Negative); Urobilinogen,Urine < 2.0 mg/dL (<2.0)
--- NOTE | 2016-12-20 08:47 | Progress Note ---
Assessment and Plan Patient resting without complaints, dressing removed - incision D&I. Lochia scant, fundus firm @ U. continue current postop pathway, will consult Dr. Garcia with pt's status. - Patient Problems (1) Intrauterine growth restriction (IUGR) affecting care of mother, third trimester, single gestation Current Visit: No Status: Resolved (2) 28 weeks gestation of Current Visit: Yes Status: Resolved (3) HTN (hypertension) Current Visit: Yes Status: Acute (4) Severe pre-eclampsia in third trimester Current Visit: No Status: Acute Plan to address problem: no s/s pre-e output good in garcia (per RN, 500 out this morning not yet charted) Mag sulfate to continue x 24h post deliver (due to come down @ 1650) Blood pressure 127-142/80's-90's (5) delivery delivered Current Visit: Yes Status: Acute (6) Anemia due to blood loss, acute Current Visit: Yes Status: Acute Plan to address problem: Postop H&H 8.3/24.2 maternal pulse elevated Pt denies symptoms of anemia but has not yet ambulated Will consult Dr. Garcia Start Po fe and colace Subjective - Subjective Date of service: 12/20/16 Principal diagnosis: postop day #1 s/p primary c/, severe pre-e Patient reports: appetite normal, pain well controlled, no nauseated : in NICU Objective - Vital Signs Latest vital signs: Vital Signs Temp Pulse Pulse Resp BP BP Pulse Ox 12/20/16 06:41 98.4 F 114 H 18 139/95 12/20/16 04:20 98.4 F 115 H 18 142/92 12/20/16 02:00 106 H 18 139/84 12/20/16 00:35 97.9 F 105 H 18 127/88 12/19/16 22:30 105 H 18 151/98 12/19/16 20:20 98.7 F 100 H 18 138/94 12/19/16 17:45 97.9 F 80 18 159/90 12/19/16 17:29 86 12 143/84 98 12/19/16 17:20 12 12/19/16 17:09 99 H 13 140/73 98 12/19/16 16:57 86 17 148/96 98 12/19/16 16:29 93 H 12 145/96 98 12/19/16 16:05 94 H 16 147/92 98 12/19/16 16:00 84 17 151/95 98 12/19/16 15:55 91 H 13 146/93 98 12/19/16 15:52 15 12/19/16 15:50 87 16 144/95 98 12/19/16 15:45 86 17 139/85 98 12/19/16 15:43 97.8 F 89 16 143/85 98 12/19/16 12:53 88 100 12/19/16 12:48 99 H 99 12/19/16 12:43 96 H 99 12/19/16 12:38 99 H 99 12/19/16 12:33 96 H 99 12/19/16 12:28 95 H 99 12/19/16 12:23 107 H 99 12/19/16 12:18 94 H 100 12/19/16 12:13 99 H 99 12/19/16 12:08 106 H 98 12/19/16 12:03 99 H 99 12/19/16 11:58 109 H 168/102 98 12/19/16 11:53 105 H 98 12/19/16 11:48 100 H 99 12/19/16 11:43 102 H 98 12/19/16 11:38 116 H 97 12/19/16 11:33 113 H 98 12/19/16 11:28 102 H 100 12/19/16 11:24 104 H 87 12/19/16 11:23 93 H 100 12/19/16 11:18 101 H 100 12/19/16 11:15 92 H 137/77 12/19/16 11:14 96 H 162/102 12/19/16 11:13 124 H 158/104 100 12/19/16 11:08 116 H 100 12/19/16 11:03 103 H 158/104 100 12/19/16 09:57 112 H 142/92 12/19/16 09:35 104 H 97 12/19/16 09:30 104 H 99 12/19/16 09:25 111 H 98 12/19/16 09:20 104 H 99 12/19/16 09:15 98 H 98 12/19/16 09:10 107 H 98 12/19/16 09:05 102 H 98 12/19/16 09:00 103 H 98 12/19/16 08:57 106 H 135/82 12/19/16 08:55 117 H 96 12/19/16 08:50 101 H 99 12/19/16 08:45 104 H 99 Intake and Output 12/19/16 12/20/16 12/20/16 22:59 06:59 14:59 Intake Total 2049 1745 Output Total 300 300 Balance 1750 1445 Intake: IV 2049 1625 PITOCin/NS 20 UNIT/1000ML 300 600 DRIP 1,000 ML @ Per Protocol IV TITR NR Rx#: [id number] Ancef/Ns 1 gm/50 ml 50 ml 50 @ 100 mls/hr IV Q8H CHANA Rx#:[id number] Lactated Ringers 1,000 ml 75 @ 125 mls/hr IV DIRECT CHANA Rx#:[id number] Magnesium Sulfate 40Gm/ 200 400 1000ML 1,000 ml @ 2 GM/HR 50 mls/hr IV TITR NR Rx# :[id number] Left Hand 250 500 Oral 120 Output: Urine 300 300 Void 300 Other: Total, Intake Amount 120 Total, Output Amount 300 - Exam Breasts: Present: normal Cardiovascular: Present: Regular rate Lungs: Present: Clear to auscultation, Normal air movement Abdomen: Present: normal appearance, soft Vulva: both: normal Uterus: Present: normal, firm, fundal height at umbilicus Extremities: Present: normal Deep Tendon Reflex Grade: Normal +2 Incision: Present: normal, dry, intact - Labs Labs: Abnormal lab results 12/19/16 12/19/16 12/20/16 Range/Units 08:08 20:00 00:15 Hgb (10.1-14.3) gm/dl Hct (30.3-42.9) % Creatinine 0.4 L (0.7-1.2) mg/dL Magnesium 4.1 H 4.8 H (1.7-2.3) mg/dL Urine WBC (Auto) (0.0-6.0) /HPF 12/20/16 12/20/16 12/20/16 Range/Units 05:56 05:56 06:45 Hgb 8.3 L D (10.1-14.3) gm/dl Hct 24.2 L D (30.3-42.9) % Creatinine (0.7-1.2) mg/dL Magnesium 5.2 H (1.7-2.3) mg/dL Urine WBC (Auto) 34.0 H (0.0-6.0) /HPF
--- NOTE | 2016-12-20 09:58 | Progress Note ---
Subjective Date of service: 12/20/16 Principal diagnosis: postop day #1 s/p primary c/, severe pre-e Interval history: 1st POD after Patient is in the bed, comfortable. Has not ambulated due to MgSO4 infusion. Pain is well controlled with pain meds. No residual neurological deficit. No anesthesia complications Objective - Constitutional Vitals: Vital Signs - 12hr 12/19/16 12/20/16 12/20/16 22:30 00:35 02:00 Temperature 97.9 F Pulse Rate [ From Monitor] Pulse Rate [ 105 H 105 H 106 H Left From Monitor] Respiratory 18 18 18 Rate Blood Pressure 151/98 127/88 139/84 [Right Arm] 12/20/16 12/20/16 12/20/16 04:20 06:41 08:05 Temperature 98.4 F 98.4 F 98.5 F Pulse Rate [ 105 H From Monitor] Pulse Rate [ 115 H 114 H Left From Monitor] Respiratory 18 18 22 Rate Blood Pressure 142/92 139/95 140/89 [Right Arm] - Labs CBC & Chem 7: 12/20/16 05:56 12/19/16 08:08 Labs: Abnormal lab results 12/19/16 12/20/16 12/20/16 Range/Units 20:00 00:15 05:56 Hgb 8.3 L D (10.1-14.3) gm/dl Hct 24.2 L D (30.3-42.9) % Magnesium 4.1 H 4.8 H (1.7-2.3) mg/dL Urine WBC (Auto) (0.0-6.0) /HPF 12/20/16 12/20/16 Range/Units 05:56 06:45 Hgb (10.1-14.3) gm/dl Hct (30.3-42.9) % Magnesium 5.2 H (1.7-2.3) mg/dL Urine WBC (Auto) 34.0 H (0.0-6.0) /HPF
[2016-12-20] MEDS: COLACE PO SCH ×2 (10:00→21:32)
[2016-12-20] MEDS: FEOSOL PO SCH ×2 (10:00→21:33)
[2016-12-20] MEDS: MAGNESIUM SULFATE 40GM/1000ML 1,000 ML IV NR (10:00)
--- NOTE | 2016-12-20 10:26 | Ultrasound Report ---
ULTRASOUND OB VELOCIMETRY UMBILICAL ARTERY: HISTORY: well being. FINDINGS: Transabdominal ultrasound with spectral Doppler interrogation was performed. 3 separate segments of the cord were evaluated. heart rate measures 138 beats per minute. The spectral waveforms demonstrate loss of end-diastolic flow. The pulsitivity index average measures 2.0.
[2016-12-20] MEDS ORDERED: FLUARIX QUAD 2016-2017(36 MOS+) IM ONE (12:00)
[2016-12-20] MEDS ORDERED: TORADOL IV PRN (15:36)
[2016-12-20] MEDS: MOTRIN PO PRN (16:30)
[2016-12-20] MEDS: PERCOCET 5/325 PO PRN ×2 (16:30→23:55)
--- NOTE | 2016-12-20 16:57 | Event Note ---
Date: 12/20/16 received call from RN that patient c/o SOB and "breathing fast". Mag discontinued, VSS except for rapid breathing. EKG performed with NSR. Patient reports feeling better at this time without complaints.
[2016-12-20] MEDS: DILAUDID IV PRN (21:32)
[2016-12-21] MEDS: PERCOCET 5/325 PO PRN ×2 (06:22→20:34)
--- NOTE | 2016-12-21 10:00 | XRay Report ---
Single view chest: History: Shortness of breath. Findings: Borderline cardiomegaly. Trachea is midline. No consolidation, pneumothorax or pleural effusion. Impression: No acute cardiopulmonary findings.
[2016-12-21] MEDS ORDERED: NACL 0.9% 500 ML 500 ML IV ONE (10:30)
--- NOTE | 2016-12-21 10:40 | Progress Note ---
Assessment and Plan patient resting without complaints, does report feeling weak and light headed during ambulation so will proceed with transfusion since she had significant drop in H&H (from 13.5/39.2 to 8.3/24.2). BP remains elevated at times 140's/80- 90's, will starting labetalol 200 PO BID. patient denies any further c/o SOB. CXR and EKG from last night both normal. continue postop pathway, anticipate d/ c home tomorrow if stable. - Patient Problems (1) HTN (hypertension) Current Visit: Yes Status: Acute (2) Severe pre-eclampsia in third trimester Current Visit: No Status: Acute (3) delivery delivered Current Visit: Yes Status: Acute (4) Anemia due to blood loss, acute Current Visit: Yes Status: Acute Plan to address problem: patient reports feeling light headed and weak during ambulation. Dr. Medina consulted, plan to transfuse 2 units RBC. Patient is agreeable to the transfusion. Subjective - Subjective Date of service: 12/21/16 Principal diagnosis: postop day #2 s/p primary c/, severe pre-e, anemia Patient reports: appetite normal, voiding normally, dizzy ambulation, pain well controlled, flatus, ambulating normally Gracey: in NICU Objective - Vital Signs Latest vital signs: Vital Signs Temp Pulse Resp Resp BP 12/21/16 08:30 98.2 F 79 18 141/82 12/21/16 06:22 18 12/20/16 23:55 18 12/20/16 23:45 98.1 F 101 H 18 147/95 12/20/16 21:35 18 12/20/16 21:32 18 12/20/16 16:13 98.8 F 102 H 18 127/88 12/20/16 14:26 77 105/52 12/20/16 12:03 98.1 F 108 H 22 135/92 Intake and Output 12/20/16 12/21/16 12/21/16 22:59 06:59 14:59 Intake Total 600 240 Output Total 800 900 Balance -200 -660 Intake: Oral 600 240 Output: Urine 800 900 Void 800 900 Other: Total, Intake Amount 120 240 Total, Output Amount 300 900 Voiding Method Toilet Toilet - Exam Breasts: Present: normal Cardiovascular: Present: Regular rate Lungs: Present: Clear to auscultation, Normal air movement Abdomen: Present: normal appearance, soft, normal bowel sounds Uterus: Present: normal, firm, fundal height at umbilicus Extremities: Present: normal Deep Tendon Reflex Grade: Normal +2 Incision: Present: normal, dry, intact - Labs Labs: Abnormal lab results 12/20/16 Range/Units 12:30 Magnesium 5.4 H (1.7-2.3) mg/dL
[2016-12-21] MEDS: NORMODYNE PO SCH ×2 (10:50→21:27)
[2016-12-21] MEDS: FEOSOL PO SCH ×2 (10:50→21:27)
[2016-12-21] MEDS: COLACE PO SCH ×2 (10:50→21:27)
[2016-12-21] MEDS: MOTRIN PO PRN (12:30)
[2016-12-21] MEDS ORDERED: NACL 0.9% 250ML 250 ML IV ONE (17:07)
[2016-12-22] MEDS: PERCOCET 5/325 PO PRN ×2 (02:23→09:41)
[2016-12-22] MEDS ORDERED: BOOSTRIX IM ONE (06:00)
[2016-12-22 06:13] LABS: Hematocrit 31.2 % (30.3-42.9); Hemoglobin 10.8 gm/dl (10.1-14.3)
--- NOTE | 2016-12-22 07:46 | Progress Note ---
Assessment and Plan patient resting w/o complaints, H&H improved post transfusion, lochia scant, fundus firm, incision D&I. b/p improving and tachycardia resolved. Dr. Medina consulted, Plan for d/c home today with f/u in office 1 week. - Patient Problems (1) HTN (hypertension) Current Visit: Yes Status: Acute (2) Severe pre-eclampsia in third trimester Current Visit: No Status: Acute Plan to address problem: d/c home with po labetalol 200mg BID f/u visit in office 1 week pre-e precautions (3) delivery delivered Current Visit: Yes Status: Acute (4) Anemia due to blood loss, acute Current Visit: Yes Status: Resolved Plan to address problem: H&H post transfusion 10.8.2 Subjective - Subjective Date of service: 12/22/16 Principal diagnosis: postop day #3 s/p primary c/, severe pre-e, anemia Patient reports: appetite normal, voiding normally, pain well controlled, ambulating normally, no dizzy ambulation, no nauseated : in NICU (pt reports infant is doing well) Objective - Vital Signs Latest vital signs: Vital Signs Temp Pulse Pulse Resp BP BP 12/22/16 04:30 98.2 F 83 18 130/67 12/22/16 00:32 98.4 F 74 20 137/84 12/21/16 22:30 98.3 F 85 20 160/85 12/21/16 22:02 98.3 F 12/21/16 21:30 98.4 F 12/21/16 21:27 80 159/104 12/21/16 20:25 98.4 F 78 20 140/91 12/21/16 20:00 98.5 F 85 20 140/85 12/21/16 19:30 99.0 F 83 18 140/86 12/21/16 19:00 98.4 F 86 20 137/81 12/21/16 18:30 98.2 F 84 18 142/82 12/21/16 17:45 98.2 F 91 H 18 152/91 12/21/16 17:30 98.2 F 94 H 18 153/97 12/21/16 16:15 98.4 F 91 H 20 155/91 12/21/16 10:50 79 142/82 12/21/16 08:30 98.2 F 79 18 141/82 Intake and Output 12/21/16 12/22/16 12/22/16 22:59 06:59 14:59 Intake Total 740 360 Output Total 600 Balance 140 360 Intake: Oral 240 Intake, Free Water 360 Blood Product 500 Leukoreduced Red Blood 250 Cells Unit [id number] Leukoreduced Red Blood 250 Cells Unit [id number] Output: Urine 600 Void 600 Other: Total, Intake Amount 240 Total, Output Amount 600 Voiding Method Toilet # Voids Void 1 - Exam Breasts: Present: normal Cardiovascular: Present: Regular rate Lungs: Present: Clear to auscultation, Normal air movement Abdomen: Present: normal appearance, soft, normal bowel sounds Vulva: both: normal Uterus: Present: normal, firm, fundal height at umbilicus Extremities: Present: normal Deep Tendon Reflex Grade: Normal +2 Incision: Present: normal, dry, intact - Labs Labs: Abnormal lab results 12/21/16 Range/Units 12:16 Crossmatch See Detail
--- NOTE | 2016-12-22 07:51 | Discharge Summary ---
Providers - Providers Date of Admission: 12/17/16 21:31 Date of discharge: 12/22/16 (desires d/c home) Attending physician: TJ ALFREDO 12/19/16 16:36 Consult to Reciprocating Drill Operator [CONS] Routine Reason For Exam: Primary care physician: [facility]ER Hospitalization Reason for admission: observation (pre-eclampsia @ 28 weeks) Delivery: Procedure: primary low transverse Incision: normal, dry, intact Other procedures: none complications: none Discharge diagnosis: other (pre-eclampsia ), delivery Hospital course: uncomplicated c/s delivery Condition at discharge: Good Disposition: DISCHARGED TO HOME OR SELFCARE - Discharge Diagnoses (1) HTN (hypertension) Status: Acute (2) Severe pre-eclampsia in third trimester Status: Acute (3) delivery delivered Status: Acute Plan - Discharge Medications Prescriptions: Lidocain2.5%/Prilocai2.5% [Emla] 5 gm TP ONCE #1 tube Ibuprofen [Motrin 800 MG tab] 800 mg PO TID PRN #30 tablet PRN Reason: Pain oxyCODONE /ACETAMINOPHEN [Percocet 5/325 mg] 1 - 2 tab PO Q4HR PRN #30 tablet PRN Reason: Pain - Provider Discharge Summary Activity: routine, no sex for 6 weeks, no heavy lifting 4 weeks, no strenuous exercise Diet: routine Instructions: routine Additional instructions: [] Smoking cessation referral if applicable(refer to patient education folder for contact #) [] Refer to [facility]'s [facility] Booklet Call your doctor immediately for: * Fever > 100.5 * Heavy vaginal bleeding ( >1 pad per hour) * Severe persistent headache * Shortness of breath * Reddened, hot, painful area to leg or breast * Drainage or odor from incision. * Keep incision clean and dry at all times and follow doctor's instructions regarding bathing/showering - Follow up plan Follow up: AIDE LIMON MD [Primary Care Provider] - 7 Days TJ ALFREDO MD [Staff Physician] - 7 Days (Congratulations! please call [phone] to schedule a blood pressure and incision check in 1 week. Call for any questions, concerns, headache, visual changes or upper abdominal pain.)
[2016-12-22] MEDS: NORMODYNE PO SCH (09:38)
[2016-12-22] MEDS: COLACE PO SCH (09:38)
[2016-12-22] MEDS: FEOSOL PO SCH (09:38)
[2016-12-22 12:47] VITALS: BP 139/88
== END 2016-12-22 13:55 | disposition home or self-care (01) | DRG 765 ==
LOC: UNDOADMIN 13:54 → 3A 13:54 → LD 21:31 → APU 12-19 14:32 → OB 12-19 17:39
PROVIDERS: ADMIT Obstetrics & Gynecology; ATTEND Obstetrics & Gynecology
PROC: 10D00Z1 Extraction of Products of Conception, Low, Open Approach (ICD-10-PCS; principal; 2016-12-19)
PROC: 3E0234Z Introduction of Serum, Toxoid and Vaccine into Muscle, Percutaneous Approach (ICD-10-PCS; 2016-12-20)
PROC: 30233N1 Transfusion of Nonautologous Red Blood Cells into Peripheral Vein, Percutaneous Approach (ICD-10-PCS; 2016-12-21)
DX: O11.4 Pre-existing hypertension with pre-eclampsia, complicating childbirth (principal); D62 Acute posthemorrhagic anemia; E22.1 Hyperprolactinemia; O90.81 Anemia of the puerperium; O36.5930 Maternal care for other known or suspected poor fetal growth, third trimester, not applicable or unspecified; O75.89 Other specified complications of labor and delivery; O76 Abnormality in fetal heart rate and rhythm complicating labor and delivery; O35.8XX0 Maternal care for other (suspected) fetal abnormality and damage, not applicable or unspecified; O36.5130 Maternal care for known or suspected placental insufficiency, third trimester, not applicable or unspecified; O34.43 Maternal care for other abnormalities of cervix, third trimester; O60.14X0 Preterm labor third trimester with preterm delivery third trimester, not applicable or unspecified; D35.2 Benign neoplasm of pituitary gland; Z3A.28 28 weeks gestation of pregnancy; Z37.0 Single live birth; Z23 Encounter for immunization; Z98.890 Other specified postprocedural states
CPT/HCPCS: 36415; 71010; 76816; 76819; 76820; 80053; 81001; 82565; 83615; 83735; 84450; 84550; 85014; 85018; 85025; 85027; 86850; 86900; 86901; 86920; 87116; 88307; 90471; 90686; 90715; 93005; 93010; 99211; C1765; G0463; J0360; J0690; J0702; J1170; J1200; J1885; J2270; J2590; J2765; J3475; J7050; J7120; P9016

== ENCOUNTER 2018-03-09 19:09 | Emergency (ER) | payer MEDICAID, OTHER ==
[2018-03-09 20:04] LABS: Basophils % (Auto) 0.3 % (0.0-1.8); Eosinophils % (Auto) 0.4 % (0.0-4.3); Hematocrit 43.3 % (30.3-42.9); Hemoglobin 14.5 gm/dl (10.1-14.3); Lymphocytes # (Auto) 0.6 K/mm3 (1.2-5.4); Lymphocytes % (Auto) 6.3 % (13.4-35.0); Mean Corpuscular HGB Conc 33 % (30-34); Mean Corpuscular Hemoglobin 30 pg (28-32); Mean Corpuscular Volume 90 fl (79-97); Monocytes # (Auto) 0.3 K/mm3 (0.0-0.8); Monocytes % (Auto) 3.2 % (0.0-7.3); Platelet Count 280 K/mm3 (140-440); Red Blood Count 4.84 M/mm3 (3.65-5.03); Red Cell Distribution Width 13.5 % (13.2-15.2)
[2018-03-09 20:23] LABS: Albumin 4.4 g/dL (3.9-5); BUN/Creatinine Ratio 22; Blood Urea Nitrogen 11 mg/dL (7-17); Calcium 9.2 mg/dL (8.4-10.2); Hemolysis Index 240; Lipase 23 units/L (13-60)
[2018-03-09 20:33] LABS: Bilirubin,Urine NEG (Negative); Blood,Urine NEG (Negative); Color,Urine Yellow (Yellow); Mucus,Urine FEW /HPF; RBC,Urine < 1.0 /HPF (0.0-6.0); Urobilinogen,Urine < 2.0 mg/dL (<2.0)
[2018-03-09 20:39] LABS: Alanine Aminotransferase 14 units/L (7-56)
[2018-03-09 20:41] LABS: HCG Qualitative,Urine Negative (Negative)
[2018-03-09] MEDS ORDERED: ZOFRAN ODT PO ONE (21:52)
[2018-03-09] MEDS ORDERED: SUBLIMAZE IV ONE (22:51)
[2018-03-09] MEDS ORDERED: ZOFRAN IV ONE (22:51)
[2018-03-09] MEDS ORDERED: NACL 0.9% 1000 ML 1,000 ML IV ONE (22:51)
[2018-03-09] MEDS ORDERED: NACL ONE (23:17)
--- NOTE | 2018-03-09 23:49 | Emergency Department Report ---
HPI - General Chief Complaint: Nausea/Vomiting/Diarrhea Time Seen by Provider: 03/09/18 22:41 - HPI HPI: Augustin Schroeder The patient is a 32-year-old female presented with a chief complaint of nausea vomiting abdominal pain. The patient states his symptoms began upon awakening this morning with nausea and vomiting. The patient states she's had constant left upper quadrant abdominal pain has been sharp in nature but sometimes decreases after vomiting. Patient admits to some muscle stool today. Patient admits to chills but denies fever. 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 - Surgical History Past Surgical History?: Yes Additional Surgical History: C SECTION - Family History Family history: no significant - Social History Smoking Status: Never Smoker Substance Use Type: None (denies illicit drug use) - Medications Home Medications: Home Medications Medication Instructions Recorded Confirmed Last Taken Type Ibuprofen [Motrin 800 MG tab] 800 mg PO TID PRN #30 tablet 12/19/16 Unknown Rx Lidocain2.5%/Prilocai2.5% [Emla] 5 gm TP ONCE #1 tube 12/19/16 Unknown Rx oxyCODONE /ACETAMINOPHEN [Percocet 1 - 2 tab PO Q4HR PRN #30 tablet 12/19/16 Unknown Rx 5/325 mg] Pnv,Calcium 72/Iron/Folic Acid 1 tab PO DAILY 12/21/16 12/21/16 3 Days Ago History [Pnv Plus Multivit Tab] ~12/18/16 Labetalol HCl 200 mg PO BID #60 tablet 12/22/16 Unknown Rx Diphenoxylate/Atropine [Lomotil] 2 tab PO QID PRN #20 tablet 03/10/18 Unknown Rx Promethazine [Phenergan TAB] 25 mg PO Q6HR PRN #20 tab 03/10/18 Unknown Rx Promethazine [Phenergan] 25 mg MD Q6HR PRN #5 supp.rect 03/10/18 Unknown Rx traMADol [Ultram] 50 mg PO Q6HR PRN #10 tablet 03/10/18 Unknown Rx ED Review of Systems ROS: Stated complaint: NAUSEA,VOMITING Other details as noted in HPI Comment: All other systems reviewed and negative Constitutional: chills. denies: fever Gastrointestinal: abdominal pain, nausea, vomiting, diarrhea (semi-soft stool) Physical Exam - Physical Exam Vital Signs: Vital Signs 03/09/18 03/09/18 19:31 23:36 Temperature 97.7 F Pulse Rate 96 H Respiratory 20 16 Rate Blood Pressure 180/113 O2 Sat by Pulse 97 99 Oximetry Physical Exam: GENERAL: The patient is well-developed well-nourished female lying on stretcher not appearing to be in acute distress. [] HEENT: Normocephalic. Atraumatic. Extraocular motions are intact. Patient has moist mucous membranes. NECK: Supple. Trachea midline CHEST/LUNGS: Clear to auscultation. There is no respiratory distress noted. HEART/CARDIOVASCULAR: Regular. There is no tachycardia. There is no gallop rub or murmur. ABDOMEN: Abdomen is soft, with diffuse discomfort to palpation. There is no rebound or guarding. Patient has normal bowel sounds. There is no abdominal distention. SKIN: There is no rash. There is no edema. There is no diaphoresis. NEURO: The patient is awake, alert, and oriented. The patient is cooperative. The patient has normal speech MUSCULOSKELETAL:There is no evidence of acute injury. ED Course Vital Signs 03/09/18 03/09/18 19:31 23:36 Temperature 97.7 F Pulse Rate 96 H Respiratory 20 16 Rate Blood Pressure 180/113 O2 Sat by Pulse 97 99 Oximetry ED Medical Decision Making - Lab Data Result diagrams: 03/09/18 19:45 03/09/18 19:45 Laboratory Tests 03/09/18 03/09/18 03/09/18 19:45 19:45 20:03 WBC 9.3 RBC 4.84 Hgb 14.5 H Hct 43.3 H MCV 90 MCH 30 MCHC 33 RDW 13.5 Plt Count 280 Lymph % (Auto) 6.3 L Hart % (Auto) 3.2 Eos % (Auto) 0.4 Baso % (Auto) 0.3 Lymph # 0.6 L Hart # 0.3 Eos # 0.0 Baso # 0.0 Seg Neutrophils % 89.8 H Seg Neutrophils # 8.4 H Sodium 134 L Potassium 4.6 Chloride 97.6 L Carbon Dioxide 19 L Anion Gap 22 BUN 11 Creatinine 0.5 L Estimated GFR > 60 BUN/Creatinine Ratio 22 Glucose 103 H Calcium 9.2 Total Bilirubin 0.80 AST 33 ALT 14 Alkaline Phosphatase 73 Total Protein 8.0 Albumin 4.4 Albumin/Globulin Ratio 1.2 Lipase 23 Urine Color Yellow Urine Turbidity Clear Urine pH 9.0 H Ur Specific [place] 1.019 Urine Protein 30 mg/dl Urine Glucose (UA) Neg Urine Ketones Tr Urine Blood Neg Urine Nitrite Neg Urine Bilirubin Neg Urine Urobilinogen < 2.0 Ur Leukocyte Esterase Neg Urine WBC (Auto) 1.0 Urine RBC (Auto) < 1.0 U Epithel Cells (Auto) 1.0 Urine Mucus Few Urine HCG, Qual Negative - Radiology Data Radiology results: report reviewed (CT abdomen and pelvis), image reviewed (CT abdomen and pelvis) [place] [address] Cat Scan Report Signed Patient: MIGNON DUQUE MR#: [id number] : 1985 Acct:[id number] Age/Sex: 32 / F ADM Date: 03/09/18 Loc: ED Attending Dr: Ordering Physician: SAYDA RICHARDSON MD Date of Service: 03/10/18 Procedure(s): CT abdomen pelvis w con Accession Number(s): [id number] cc: SAYDA RICHARDSON MD FINAL REPORT PROCEDURE: CT ABDOMEN PELVIS W CON TECHNIQUE: Computerized axial tomography of the abdomen and pelvis was performed after the IV injection of iodinated nonionic contrast. HISTORY: left-sided abdominal pain nausea vomiting COMPARISON: No prior studies are available for comparison. FINDINGS: Visualized lower thorax: No significant abnormality. Liver: Normal size and attenuation. Spleen: Normal size and attenuation. Gallbladder and biliary system: Normal. Pancreas: Normal. Adrenals: Normal. Kidneys: Normal. GI tract: No obstruction. No ileus or enteritis. The cecum, appendix region and colon are normal.. Lymph nodes and mesentery: Normal. Vasculature: Normal. Bladder: Normal. Reproductive organs: The uterus is normal. There is a dominant 2 centimeter cyst on the right ovary. Minimal fluid in the lower pelvis is noted.. Peritoneum: No free fluid. Musculoskeletal structures: No significant abnormality. Other: None. IMPRESSION: There is no evidence of intestinal or urinary tract obstruction. No ileus or enteritis. Dominant 2 centimeter cyst right ovary. Minimal fluid in the lower pelvis. Transcribed By: [facility] Dictated By: MANASA SANCHEZ MD Electronically Authenticated By: MANASA SANCHEZ MD Signed Date/Time: 03/10/18111 DD/ 1 TD/TT: 03/10/18111 - Differential Diagnosis acute gastroenteritis, colitis, partial small bowel obstruction Critical care attestation.: If time is entered above; I have spent that time in minutes in the direct care of this critically ill patient, excluding procedure time. ED Disposition Clinical Impression: Acute abdominal pain, Nausea vomiting and diarrhea Disposition: TO HOME OR SELFCARE Is pt being admited?: No Does the pt Need Aspirin: No Condition: Stable Instructions: Abdominal Pain (ED), Acute Nausea and Vomiting (ED) Additional Instructions: Return to the emergency department immediately should you develop worsening symptoms, fever, inability to tolerate food or liquid or any other concerns. Prescriptions: Diphenoxylate/Atropine [Lomotil] 2 tab PO QID PRN #20 tablet PRN Reason: Diarrhea Promethazine [Phenergan TAB] 25 mg PO Q6HR PRN #20 tab PRN Reason: Nausea Promethazine [Phenergan] 25 mg MD Q6HR PRN #5 supp.rect PRN Reason: Vomiting traMADol [Ultram] 50 mg PO Q6HR PRN #10 tablet PRN Reason: Pain Referrals: PRIMARY CARE, [Primary Care Provider] - 3-5 Days LEIA CHIU MD [Staff Physician] - 3-5 Days (Dr. Chiu is a paper tube cutter. Please follow-up with him for further evaluation) Time of Disposition: 01:23
--- NOTE | 2018-03-10 01:17 | Cat Scan Report ---
FINAL REPORT PROCEDURE: CT ABDOMEN PELVIS W CON TECHNIQUE: Computerized axial tomography of the abdomen and pelvis was performed after the IV injection of iodinated nonionic contrast. HISTORY: left-sided abdominal pain nausea vomiting COMPARISON: No prior studies are available for comparison. FINDINGS: Visualized lower thorax: No significant abnormality. Liver: Normal size and attenuation. Spleen: Normal size and attenuation. Gallbladder and biliary system: Normal. Pancreas: Normal. Adrenals: Normal. Kidneys: Normal. GI tract: No obstruction. No ileus or enteritis. The cecum, appendix region and colon are normal.. Lymph nodes and mesentery: Normal. Vasculature: Normal. Bladder: Normal. Reproductive organs: The uterus is normal. There is a dominant 2 centimeter cyst on the right ovary. Minimal fluid in the lower pelvis is noted.. Peritoneum: No free fluid. Musculoskeletal structures: No significant abnormality. Other: None. IMPRESSION: There is no evidence of intestinal or urinary tract obstruction. No ileus or enteritis. Dominant 2 centimeter cyst right ovary. Minimal fluid in the lower pelvis.
[2018-03-10 01:58] VITALS: BP 114/78
== END 2018-03-10 01:58 | disposition home or self-care (01) ==
LOC: ED 19:09
DX: R11.2 Nausea with vomiting, unspecified (principal); R10.9 Unspecified abdominal pain; R19.7 Diarrhea, unspecified; I10 Essential (primary) hypertension
CPT/HCPCS: 36415; 74177; 80053; 81001; 81025; 83690; 85025; 96361; 96374; 99284; J2405; J7030; Q9967; Q0162